=== PATIENT | male | born 1975 | race Caucasian/White ===

== ENCOUNTER → 2023-01-03 | Outpatient (CLI) | payer OTHER ==
[~2023-01-03] MED LIST: AMOX500 PO; CEPH500 PO; DIABETIC MED; HYDACE5 PO; METF500 PO; NAPR500 PO; SILSUL1TC TOP
== END | disposition home or self-care (01) ==
LOC: LAB SHORT 10:50 → PLD 10:50 → LAB 10:50
DX: H00.11 Chalazion right upper eyelid (principal)
CPT/HCPCS: 88304

== ENCOUNTER → 2025-01-01 | Outpatient (CLI) | payer OTHER | LOC: LAB 13:04 → LAB SHORT 13:04 | DX: L97.509 Non-pressure chronic ulcer of other part of unspecified foot with unspecified severity (principal) | CPT/HCPCS: 87070; 87075; 87205 ==

== ENCOUNTER 2025-02-18 18:30 | Emergency (ER) | payer OTHER ==
[~2025-02-18] VITALS: Ht 180.3 cm; Wt 94.3 kg
[2025-02-18] MEDS ORDERED: Acetaminophen 500 MG Tab PO ONE ×2 (18:50→23:00)
[2025-02-18] MEDS ORDERED: DiphenhydrAMINE HCl 50 MG/ML 1ML Vial IV ONE ×2 (18:50→23:00)
[2025-02-18] MEDS ORDERED: NS 1,000 ML IV SCH ×3 (18:50→23:00)
[2025-02-18] MEDS ORDERED: Prochlorperazine Edisylate 10 mg Vial IV ONE ×2 (18:50→23:00)
[2025-02-18] MEDS ORDERED: Ondansetron HCl 2 MG / ML 2ML Vial IV ONE (18:50)
[2025-02-18] MEDS ORDERED: Clindamycin 600mg in D5W 50 ML IV ONE ×2 (18:55→23:00)
[2025-02-18 19:12] LABS: BASOPHILS ABSOLUTE AUTO 0.06 K/mm3 (0.00-0.23); BASOPHILS PERCENT AUTO 0 % (0-2); EOSINOPHILS ABSOLUTE AUTO 0.01 K/mm3 (0.00-0.68); EOSINOPHILS PERCENT AUTO 0 % (0-6); Hematocrit 39.5 % (37.0-53.0); Hemoglobin 12.9 g/dL (13.5-17.5); IMMATURE GRAN ABSOLUTE AUTO 0.09 K/mm3 (0.00-0.10); IMMATURE GRAN PERCENT AUTO 1 % (0-1); LYMPHOCYTES ABSOLUTE AUTO 1.01 K/mm3 (0.84-5.20); LYMPHOCYTES PERCENT AUTO 5 % (21-46); MONOCYTES PERCENT AUTO 7 % (4-13); Mean Corpuscular HGB 30.5 pg (26.0-34.0); Mean Corpuscular HGB Conc 32.7 g/dL (31.5-36.5); Mean Corpuscular Volume 93 fL (80-100); Mean Platelet Volume 11.1 fL (9.1-12.4); NEUTROPHILS ABSOLUTE AUTO 16.57 K/mm3 (1.96-9.15); NEUTROPHILS PERCENT AUTO 87 % (41-73); Platelet Count 222 K/mm3 (150-400); RDW Coefficient Variation 12.5 % (11.7-14.2); RDW Standard Deviation 42.9 fL (35.1-46.3); Red Blood Cell Count 4.23 M/mm3 (4.30-5.90); White Blood Cell Count 19.14 K/mm3 (4.00-11.30)
[2025-02-18 19:29] LABS: Bun/Creatinine Ratio 13.2 (12.0-20.0); Calcium, Blood 9.1 mg/dL (8.5-10.1); Creatinine, Blood 1.14 mg/dL (0.60-1.20)
[2025-02-18] MEDS ORDERED: Piperacillin/Tazobactam Sod 4.5 GM in NS 100 ML IV ONE (20:35)
[2025-02-18] MEDS ORDERED: Vancomycin HCL 2,000 MG in NS 500 ML IV ONE (21:35)
[2025-02-18] MEDS ORDERED: Ketorolac Tromethamine 15mg Vial IV ONE (23:00)
[2025-02-19] MEDS ORDERED: NS 1,000 ML IV SCH (02:25)
[2025-02-19 03:35] VITALS: BP 92/64
== END 2025-02-19 03:53 | disposition short-term general hospital (02) ==
LOC: ER 18:30
PROVIDERS: Emergency Medicine
DX: A41.9 Sepsis, unspecified organism (principal); I10 Essential (primary) hypertension; E11.622 Type 2 diabetes mellitus with other skin ulcer; Z79.84 Long term (current) use of oral hypoglycemic drugs
CPT/HCPCS: 36415; 71046; 73630; 73701; 80048; 83605; 83735; 83880; 84484; 85025; 85651; 86140; 87040; 93005; 93010; 96361; 96374-59; 96375; 99285-25; A9270; J0780; J1200; J1885; J2543; J3370; J7030; J7040; Q9967

== ENCOUNTER → 2025-05-18 | Outpatient (CLI) | payer OTHER ==
[2025-05-18 20:24] LABS: Creatinine, Urine Random 122.0 mg/dL (27.00-270.00); Microalb/Creat Ratio UR, Rand 18.115 mg/g (0.000-30.000); Microalbumin, Random Urine 22.1 mg/L (0.000-20.000)
== END ==
LOC: LAB 15:57 → LAB SHORT 15:57
PROVIDERS: Internal Medicine Endocrinology, Diabetes & Metabolism
DX: E11.65 Type 2 diabetes mellitus with hyperglycemia (principal)
CPT/HCPCS: 82043; 82570

== ENCOUNTER → 2025-06-11 | Outpatient (CLI) | payer OTHER ==
[~2025-06-11] MED LIST changes: +ALOGLIPTIN25 M1 PO; +BUPROPION XL150 M1 PO; +DAPTOMYCIN500 M3 IV; +HUMALOG JU100 UNIT/2 SC; +OXYC10TA19 PO; +PREG75 PO; +STEGLATRO5 MG PO
== END ==
LOC: LAB SHORT 09:49 → LAB 09:49
DX: L97.823 Non-pressure chronic ulcer of other part of left lower leg with necrosis of muscle (principal)
CPT/HCPCS: 87070; 87077; 87147; 87186; 87205

== ENCOUNTER 2025-06-18 00:30 | Day surgery (SDC) | payer OTHER ==
[~2025-06-18] VITALS: Wt 99.0 kg
[~2025-06-18 00:30] MED LIST changes: -ALOGLIPTIN25 M1 PO; -BUPROPION XL150 M1 PO; -DAPTOMYCIN500 M3 IV; -HUMALOG JU100 UNIT/2 SC; -OXYC10TA19 PO; -PREG75 PO; -STEGLATRO5 MG PO
[2025-06-18] MEDS ORDERED: DAPTOmycin 600 MG in NS 50 ML IV SCH (06:00)
[2025-06-18 10:43] VITALS: BP 112/83
[2025-06-18] MEDS ORDERED: PREG75 PO (11:55)
[2025-06-18] MEDS ORDERED: HUMALOG JU100 UNIT/2 SC (11:55)
[2025-06-18] MEDS ORDERED: BUPROPION XL150 M1 PO (11:56)
[2025-06-18] MEDS ORDERED: STEGLATRO5 MG PO (11:56)
[2025-06-18] MEDS ORDERED: OXYC10TA19 PO (11:56)
[2025-06-18] MEDS ORDERED: ALOGLIPTIN25 M1 PO (11:57)
[2025-06-18] MEDS ORDERED: DAPTOMYCIN500 M3 IV (11:58)
== END 2025-06-18 11:01 | disposition home or self-care (01) ==
LOC: ATC 00:30
DX: A41.9 Sepsis, unspecified organism (principal); E11.621 Type 2 diabetes mellitus with foot ulcer; E11.65 Type 2 diabetes mellitus with hyperglycemia; Z79.4 Long term (current) use of insulin; Z79.899 Other long term (current) drug therapy; Z91.041 Radiographic dye allergy status
CPT/HCPCS: 96365; J0878

== ENCOUNTER 2025-06-19 02:07 | Day surgery (SDC) | payer OTHER ==
[~2025-06-19 02:07] MED LIST changes: +ALOGLIPTIN25 M1 PO; +BUPROPION XL150 M1 PO; +DAPTOMYCIN500 M3 IV; +HUMALOG JU100 UNIT/2 SC; +OXYC10TA19 PO; +PREG75 PO; +STEGLATRO5 MG PO
[2025-06-19] MEDS ORDERED: DAPTOmycin 600 MG in NS 50 ML IV SCH (07:25)
[2025-06-19 10:31] VITALS: BP 138/91
== END 2025-06-19 10:55 | disposition home or self-care (01) ==
LOC: ATC 02:07
DX: E11.69 Type 2 diabetes mellitus with other specified complication (principal); M86.672 Other chronic osteomyelitis, left ankle and foot; L08.9 Local infection of the skin and subcutaneous tissue, unspecified; E11.65 Type 2 diabetes mellitus with hyperglycemia; F32.A Depression, unspecified; Z79.899 Other long term (current) drug therapy; Z91.041 Radiographic dye allergy status
CPT/HCPCS: 96365; J0878

== ENCOUNTER 2025-06-20 01:55 | Day surgery (SDC) | payer OTHER ==
[2025-06-20] MEDS ORDERED: DAPTOmycin 600 MG in NS 50 ML IV SCH (06:00)
[2025-06-20 10:34] VITALS: BP 112/81
== END 2025-06-20 10:54 | disposition home or self-care (01) ==
LOC: ATC 01:55
DX: E11.628 Type 2 diabetes mellitus with other skin complications (principal); L08.9 Local infection of the skin and subcutaneous tissue, unspecified; E11.65 Type 2 diabetes mellitus with hyperglycemia; E11.69 Type 2 diabetes mellitus with other specified complication; M86.9 Osteomyelitis, unspecified; A41.9 Sepsis, unspecified organism; B95.62 Methicillin resistant Staphylococcus aureus infection as the cause of diseases classified elsewhere; N17.9 Acute kidney failure, unspecified; Z79.4 Long term (current) use of insulin; Z79.899 Other long term (current) drug therapy; Z91.041 Radiographic dye allergy status
CPT/HCPCS: 96365; J0878

== ENCOUNTER 2025-06-21 01:10 | Day surgery (SDC) | payer OTHER ==
[2025-06-21] MEDS ORDERED: DAPTOmycin 600 MG in NS 50 ML IV SCH (06:00)
[2025-06-21 14:38] VITALS: BP 107/81
== END 2025-06-21 15:05 | disposition home or self-care (01) ==
LOC: ATC 01:10
DX: A41.9 Sepsis, unspecified organism (principal); E11.65 Type 2 diabetes mellitus with hyperglycemia; E11.621 Type 2 diabetes mellitus with foot ulcer; Z79.899 Other long term (current) drug therapy; Z91.041 Radiographic dye allergy status
CPT/HCPCS: 96365; J0878

== ENCOUNTER 2025-06-22 08:03 | Day surgery (SDC) | payer OTHER ==
[2025-06-22] MEDS ORDERED: DAPTOmycin 600 MG in NS 50 ML IV SCH (08:30)
[2025-06-22 12:16] LABS: BASOPHILS ABSOLUTE AUTO 0.04 K/mm3 (0.00-0.23); BASOPHILS PERCENT AUTO 1 % (0-2); EOSINOPHILS ABSOLUTE AUTO 0.50 K/mm3 (0.00-0.68); EOSINOPHILS PERCENT AUTO 6 % (0-6); Hematocrit 36.9 % (37.0-53.0); Hemoglobin 11.8 g/dL (13.5-17.5); IMMATURE GRAN ABSOLUTE AUTO 0.09 K/mm3 (0.00-0.10); IMMATURE GRAN PERCENT AUTO 1 % (0-1); LYMPHOCYTES ABSOLUTE AUTO 1.96 K/mm3 (0.84-5.20); LYMPHOCYTES PERCENT AUTO 23 % (21-46); MONOCYTES ABSOLUTE AUTO 0.59 K/mm3 (0.16-1.47); MONOCYTES PERCENT AUTO 7 % (4-13); Mean Corpuscular HGB Conc 32.0 g/dL (31.5-36.5); Mean Corpuscular Volume 89 fL (80-100); NEUTROPHILS ABSOLUTE AUTO 5.47 K/mm3 (1.96-9.15); NEUTROPHILS PERCENT AUTO 63 % (41-73); NRBC ABSOLUTE 0.00 K/mm3 (0.00-0.02); NRBC Auto 0.0 /100 WBC (0.0-0.2); Platelet Count 354 K/mm3 (150-400); RDW Coefficient Variation 14.8 % (11.7-14.2); RDW Standard Deviation 47.7 fL (35.1-46.3)
[2025-06-22 12:47] LABS: Alanine Aminotransfer (ALT/SGP 35.0 U/L (12-78); Albumin, Blood 3.0 g/dL (3.4-5.0); Albumin/Globulin Ratio 0.7 (0.8-1.8); Anion Gap 6.0 mmol/L (3-11); Aspartate Aminotrans (AST/SGOT 23.0 U/L (12-37); Bilirubin, Total 0.2 mg/dL (0.1-1.0); Blood Urea Nitrogen 30.0 mg/dL (8-24); CO2, Blood 29.0 mmol/L (21-32); Calcium, Blood 9.0 mg/dL (8.5-10.1); Chloride, Blood 106.0 mmol/L (98-108); Creatinine, Blood 0.83 mg/dL (0.60-1.20); Globulin, Blood 4.6 g/dL (2.2-4.0); Glucose, Blood 171.0 mg/dL (70-99); Potassium, Blood 4.3 mmol/L (3.5-5.5); Sodium, Blood 137.0 mmol/L (136-145); Total Protein, Blood 7.6 g/dL (6.4-8.2)
== END 2025-06-22 11:35 | disposition home or self-care (01) ==
LOC: ATC 08:03
PROVIDERS: Family Medicine
DX: E11.69 Type 2 diabetes mellitus with other specified complication (principal); M86.9 Osteomyelitis, unspecified; A41.9 Sepsis, unspecified organism; R65.20 Severe sepsis without septic shock; E11.628 Type 2 diabetes mellitus with other skin complications; L08.9 Local infection of the skin and subcutaneous tissue, unspecified; E11.65 Type 2 diabetes mellitus with hyperglycemia; N17.9 Acute kidney failure, unspecified; B95.7 Other staphylococcus as the cause of diseases classified elsewhere; B96.89 Other specified bacterial agents as the cause of diseases classified elsewhere; Z91.041 Radiographic dye allergy status
CPT/HCPCS: 80053; 82550; 85025; 96365; J0878

== ENCOUNTER 2025-06-23 01:05 | Day surgery (SDC) | payer OTHER ==
[2025-06-23] MEDS ORDERED: DAPTOmycin 600 MG in NS 50 ML IV SCH (06:00)
[2025-06-23 10:29] VITALS: BP 114/86
== END 2025-06-23 10:53 | disposition home or self-care (01) ==
LOC: ATC 01:05
DX: E11.69 Type 2 diabetes mellitus with other specified complication (principal); M86.9 Osteomyelitis, unspecified; E11.628 Type 2 diabetes mellitus with other skin complications; L08.9 Local infection of the skin and subcutaneous tissue, unspecified; A41.9 Sepsis, unspecified organism; E11.65 Type 2 diabetes mellitus with hyperglycemia; Z91.041 Radiographic dye allergy status; Z79.899 Other long term (current) drug therapy
CPT/HCPCS: 96365; J0878

== ENCOUNTER 2025-06-24 00:40 | Day surgery (SDC) | payer OTHER ==
[2025-06-24] MEDS ORDERED: DAPTOmycin 600 MG in NS 50 ML IV SCH (06:00)
[2025-06-24 10:36] VITALS: BP 110/81
== END 2025-06-24 10:55 | disposition home or self-care (01) ==
LOC: ATC 00:40
DX: A41.9 Sepsis, unspecified organism (principal); E11.65 Type 2 diabetes mellitus with hyperglycemia; E11.621 Type 2 diabetes mellitus with foot ulcer; Z79.899 Other long term (current) drug therapy; Z91.041 Radiographic dye allergy status
CPT/HCPCS: 96365; J0878

== ENCOUNTER 2025-06-25 07:42 | Day surgery (SDC) | payer OTHER ==
[~2025-06-25 07:42] MED LIST changes: +DAPTOmycin 600 MG in NS 50 ML IV SCH
[2025-06-25 10:18] VITALS: BP 128/91
== END 2025-06-25 10:41 | disposition home or self-care (01) ==
LOC: ATC 07:42
DX: A41.9 Sepsis, unspecified organism (principal); R65.20 Severe sepsis without septic shock; N17.9 Acute kidney failure, unspecified; E11.69 Type 2 diabetes mellitus with other specified complication; M86.8X7 Other osteomyelitis, ankle and foot; B96.89 Other specified bacterial agents as the cause of diseases classified elsewhere; B96.4 Proteus (mirabilis) (morganii) as the cause of diseases classified elsewhere; B95.62 Methicillin resistant Staphylococcus aureus infection as the cause of diseases classified elsewhere; Z16.24 Resistance to multiple antibiotics; Z79.2 Long term (current) use of antibiotics; Z79.4 Long term (current) use of insulin; Z79.899 Other long term (current) drug therapy; Z91.041 Radiographic dye allergy status
CPT/HCPCS: 96365; J0878

== ENCOUNTER 2025-06-26 00:34 | Day surgery (SDC) | payer OTHER ==
[~2025-06-26] VITALS: Ht 180.3 cm; Wt 99.0 kg
[~2025-06-26 00:34] MED LIST changes: -DAPTOmycin 600 MG in NS 50 ML IV SCH
[2025-06-26] MEDS ORDERED: DAPTOmycin 600 MG in NS 50 ML IV SCH (06:00)
[2025-06-26 10:36] VITALS: BP 112/81
== END 2025-06-26 11:00 | disposition home or self-care (01) ==
LOC: ATC 00:34
DX: A41.9 Sepsis, unspecified organism (principal); R65.20 Severe sepsis without septic shock; N17.9 Acute kidney failure, unspecified; E11.69 Type 2 diabetes mellitus with other specified complication; M86.8X7 Other osteomyelitis, ankle and foot; B96.89 Other specified bacterial agents as the cause of diseases classified elsewhere; B96.4 Proteus (mirabilis) (morganii) as the cause of diseases classified elsewhere; B95.62 Methicillin resistant Staphylococcus aureus infection as the cause of diseases classified elsewhere; Z16.24 Resistance to multiple antibiotics; Z79.2 Long term (current) use of antibiotics; Z79.4 Long term (current) use of insulin; Z79.899 Other long term (current) drug therapy; Z91.041 Radiographic dye allergy status
CPT/HCPCS: 96365; J0878

== ENCOUNTER 2025-06-29 01:12 | Day surgery (SDC) | payer OTHER ==
[2025-06-29] MEDS ORDERED: DAPTOmycin 600 MG in NS 50 ML IV SCH (06:00)
[2025-06-29 10:33] VITALS: BP 120/85
[2025-06-29 11:04] LABS: BASOPHILS ABSOLUTE AUTO 0.06 K/mm3 (0.00-0.23); BASOPHILS PERCENT AUTO 1 % (0-2); EOSINOPHILS ABSOLUTE AUTO 0.33 K/mm3 (0.00-0.68); EOSINOPHILS PERCENT AUTO 5 % (0-6); Hematocrit 37.9 % (37.0-53.0); Hemoglobin 12.3 g/dL (13.5-17.5); IMMATURE GRAN ABSOLUTE AUTO 0.02 K/mm3 (0.00-0.10); IMMATURE GRAN PERCENT AUTO 0 % (0-1); LYMPHOCYTES ABSOLUTE AUTO 2.02 K/mm3 (0.84-5.20); LYMPHOCYTES PERCENT AUTO 31 % (21-46); MONOCYTES ABSOLUTE AUTO 0.49 K/mm3 (0.16-1.47); MONOCYTES PERCENT AUTO 7 % (4-13); Mean Corpuscular HGB Conc 32.5 g/dL (31.5-36.5); Mean Corpuscular Volume 88 fL (80-100); NEUTROPHILS ABSOLUTE AUTO 3.70 K/mm3 (1.96-9.15); NEUTROPHILS PERCENT AUTO 56 % (41-73); NRBC ABSOLUTE 0.00 K/mm3 (0.00-0.02); NRBC Auto 0.0 /100 WBC (0.0-0.2); Platelet Count 290 K/mm3 (150-400); RDW Coefficient Variation 15.1 % (11.7-14.2); RDW Standard Deviation 48.5 fL (35.1-46.3)
[2025-06-29 11:37] LABS: Alanine Aminotransfer (ALT/SGP 47.0 U/L (12-78); Albumin, Blood 3.5 g/dL (3.4-5.0); Albumin/Globulin Ratio 0.7 (0.8-1.8); Anion Gap 6.0 mmol/L (3-11); Aspartate Aminotrans (AST/SGOT 36.0 U/L (12-37); Bilirubin, Total 0.3 mg/dL (0.1-1.0); Blood Urea Nitrogen 30.0 mg/dL (8-24); CO2, Blood 27.0 mmol/L (21-32); Calcium, Blood 9.1 mg/dL (8.5-10.1); Chloride, Blood 109.0 mmol/L (98-108); Creatinine, Blood 0.87 mg/dL (0.60-1.20); Globulin, Blood 4.7 g/dL (2.2-4.0); Glucose, Blood 220.0 mg/dL (70-99); Potassium, Blood 4.2 mmol/L (3.5-5.5); Sodium, Blood 138.0 mmol/L (136-145); Total Protein, Blood 8.2 g/dL (6.4-8.2)
== END 2025-06-29 11:10 | disposition home or self-care (01) ==
LOC: ATC 01:12
PROVIDERS: Family Medicine
DX: E11.69 Type 2 diabetes mellitus with other specified complication (principal); M86.9 Osteomyelitis, unspecified; E11.628 Type 2 diabetes mellitus with other skin complications; L08.9 Local infection of the skin and subcutaneous tissue, unspecified; A41.9 Sepsis, unspecified organism; E11.65 Type 2 diabetes mellitus with hyperglycemia
CPT/HCPCS: 80053; 82550; 85025; J0878

== ENCOUNTER 2025-07-02 01:24 | Day surgery (SDC) | payer OTHER ==
[2025-07-02] MEDS ORDERED: DAPTOmycin 600 MG in NS 50 ML IV SCH (06:00)
[2025-07-02 10:43] VITALS: BP 108/82
== END 2025-07-02 11:04 | disposition home or self-care (01) ==
LOC: ATC 01:24
DX: E11.69 Type 2 diabetes mellitus with other specified complication (principal); M86.9 Osteomyelitis, unspecified; E11.628 Type 2 diabetes mellitus with other skin complications; L08.9 Local infection of the skin and subcutaneous tissue, unspecified; E11.65 Type 2 diabetes mellitus with hyperglycemia
CPT/HCPCS: 96365; J0878

== ENCOUNTER 2025-07-03 01:00 | Day surgery (SDC) | payer OTHER ==
[2025-07-03] MEDS ORDERED: DAPTOmycin 600 MG in NS 50 ML IV SCH (06:00)
[2025-07-03 10:39] VITALS: BP 110/88
== END 2025-07-03 10:59 | disposition home or self-care (01) ==
LOC: ATC 01:00
DX: E11.628 Type 2 diabetes mellitus with other skin complications (principal); L08.9 Local infection of the skin and subcutaneous tissue, unspecified; A41.02 Sepsis due to Methicillin resistant Staphylococcus aureus; R65.20 Severe sepsis without septic shock; N17.9 Acute kidney failure, unspecified; E11.65 Type 2 diabetes mellitus with hyperglycemia; E11.69 Type 2 diabetes mellitus with other specified complication; M86.9 Osteomyelitis, unspecified; Z79.4 Long term (current) use of insulin; Z79.84 Long term (current) use of oral hypoglycemic drugs; Z79.899 Other long term (current) drug therapy
CPT/HCPCS: 96365; J0878

== ENCOUNTER 2025-07-04 08:13 | Day surgery (SDC) | payer OTHER ==
[~2025-07-04 08:13] MED LIST changes: +DAPTOmycin 600 MG in NS 50 ML IV SCH
[2025-07-04 10:43] VITALS: BP 127/80
== END 2025-07-04 11:03 | disposition home or self-care (01) ==
LOC: ATC 08:13
DX: E11.628 Type 2 diabetes mellitus with other skin complications (principal); L08.9 Local infection of the skin and subcutaneous tissue, unspecified; E11.65 Type 2 diabetes mellitus with hyperglycemia; A41.02 Sepsis due to Methicillin resistant Staphylococcus aureus; R65.20 Severe sepsis without septic shock; N17.9 Acute kidney failure, unspecified; Z79.899 Other long term (current) drug therapy; Z79.4 Long term (current) use of insulin; Z91.041 Radiographic dye allergy status
CPT/HCPCS: 96365; J0878

== ENCOUNTER 2025-07-05 00:12 | Day surgery (SDC) | payer OTHER ==
[~2025-07-05 00:12] MED LIST changes: -DAPTOmycin 600 MG in NS 50 ML IV SCH
[2025-07-05] MEDS ORDERED: DAPTOmycin 600 MG in NS 50 ML IV SCH (06:00)
[2025-07-05 14:42] VITALS: BP 134/91
== END 2025-07-05 15:11 | disposition home or self-care (01) ==
LOC: ATC 00:12
DX: E11.628 Type 2 diabetes mellitus with other skin complications (principal); E11.65 Type 2 diabetes mellitus with hyperglycemia; F32.A Depression, unspecified; Z79.4 Long term (current) use of insulin; Z79.899 Other long term (current) drug therapy; Z91.041 Radiographic dye allergy status
CPT/HCPCS: 96365; J0878

== ENCOUNTER 2025-07-06 01:31 | Day surgery (SDC) | payer OTHER ==
[~2025-07-06] VITALS: Wt 97.7 kg
[2025-07-06] MEDS ORDERED: DAPTOmycin 600 MG in NS 50 ML IV SCH (06:00)
[2025-07-06 10:31] VITALS: BP 110/77
[2025-07-06 11:27] LABS: BASOPHILS ABSOLUTE AUTO 0.05 K/mm3 (0.00-0.23); BASOPHILS PERCENT AUTO 1 % (0-2); EOSINOPHILS ABSOLUTE AUTO 0.56 K/mm3 (0.00-0.68); EOSINOPHILS PERCENT AUTO 7 % (0-6); Hematocrit 39.4 % (37.0-53.0); Hemoglobin 12.8 g/dL (13.5-17.5); IMMATURE GRAN ABSOLUTE AUTO 0.03 K/mm3 (0.00-0.10); IMMATURE GRAN PERCENT AUTO 0 % (0-1); LYMPHOCYTES ABSOLUTE AUTO 2.21 K/mm3 (0.84-5.20); LYMPHOCYTES PERCENT AUTO 27 % (21-46); MONOCYTES ABSOLUTE AUTO 0.47 K/mm3 (0.16-1.47); MONOCYTES PERCENT AUTO 6 % (4-13); Mean Corpuscular HGB Conc 32.5 g/dL (31.5-36.5); Mean Corpuscular Volume 88 fL (80-100); NEUTROPHILS ABSOLUTE AUTO 4.84 K/mm3 (1.96-9.15); NEUTROPHILS PERCENT AUTO 59 % (41-73); NRBC ABSOLUTE 0.00 K/mm3 (0.00-0.02); NRBC Auto 0.0 /100 WBC (0.0-0.2); Platelet Count 274 K/mm3 (150-400); RDW Coefficient Variation 15.4 % (11.7-14.2); RDW Standard Deviation 49.1 fL (35.1-46.3)
[2025-07-06 11:59] LABS: Alanine Aminotransfer (ALT/SGP 56.0 U/L (12-78); Albumin, Blood 3.6 g/dL (3.4-5.0); Albumin/Globulin Ratio 0.8 (0.8-1.8); Anion Gap 7.0 mmol/L (3-11); Aspartate Aminotrans (AST/SGOT 30.0 U/L (12-37); Bilirubin, Total 0.4 mg/dL (0.1-1.0); Blood Urea Nitrogen 27.0 mg/dL (8-24); CO2, Blood 26.0 mmol/L (21-32); Calcium, Blood 9.3 mg/dL (8.5-10.1); Chloride, Blood 110.0 mmol/L (98-108); Creatinine, Blood 0.86 mg/dL (0.60-1.20); Globulin, Blood 4.5 g/dL (2.2-4.0); Glucose, Blood 197.0 mg/dL (70-99); Potassium, Blood 4.0 mmol/L (3.5-5.5); Sodium, Blood 139.0 mmol/L (136-145); Total Protein, Blood 8.1 g/dL (6.4-8.2)
== END 2025-07-06 10:52 | disposition home or self-care (01) ==
LOC: ATC 01:31
PROVIDERS: Student in an Organized Health Care Education/Training Program
DX: E11.69 Type 2 diabetes mellitus with other specified complication (principal); M86.9 Osteomyelitis, unspecified; L08.9 Local infection of the skin and subcutaneous tissue, unspecified; A41.9 Sepsis, unspecified organism; E11.65 Type 2 diabetes mellitus with hyperglycemia; Z91.041 Radiographic dye allergy status
CPT/HCPCS: 80053; 82550; 85025; 96365; J0878

== ENCOUNTER 2025-07-07 00:52 | Day surgery (SDC) | payer OTHER ==
[2025-07-07] MEDS ORDERED: DAPTOmycin 600 MG in NS 50 ML IV SCH (06:00)
[2025-07-07 10:37] VITALS: BP 113/83
== END 2025-07-07 10:59 | disposition home or self-care (01) ==
LOC: ATC 00:52
DX: E11.628 Type 2 diabetes mellitus with other skin complications (principal); L08.9 Local infection of the skin and subcutaneous tissue, unspecified; E11.65 Type 2 diabetes mellitus with hyperglycemia; F32.A Depression, unspecified; Z79.4 Long term (current) use of insulin; Z79.899 Other long term (current) drug therapy; Z91.041 Radiographic dye allergy status
CPT/HCPCS: 96365; J0878

== ENCOUNTER 2025-07-08 03:15 | Day surgery (SDC) | payer OTHER ==
[2025-07-08] MEDS ORDERED: DAPTOmycin 600 MG in NS 50 ML IV SCH (06:00)
[2025-07-08 11:50] VITALS: BP 127/92
== END 2025-07-08 12:12 | disposition home or self-care (01) ==
LOC: ATC 03:15
DX: A41.9 Sepsis, unspecified organism (principal); R65.20 Severe sepsis without septic shock; N17.9 Acute kidney failure, unspecified; E11.628 Type 2 diabetes mellitus with other skin complications; L08.9 Local infection of the skin and subcutaneous tissue, unspecified; B95.62 Methicillin resistant Staphylococcus aureus infection as the cause of diseases classified elsewhere; B96.89 Other specified bacterial agents as the cause of diseases classified elsewhere; Z79.4 Long term (current) use of insulin; Z79.84 Long term (current) use of oral hypoglycemic drugs; Z79.899 Other long term (current) drug therapy; Z91.041 Radiographic dye allergy status
CPT/HCPCS: 96365; J0878

== ENCOUNTER 2025-07-09 08:12 | Day surgery (SDC) | payer OTHER ==
[~2025-07-09 08:12] MED LIST changes: +DAPTOmycin 600 MG in NS 50 ML IV SCH
[2025-07-09 10:37] VITALS: BP 120/73
== END 2025-07-09 10:57 | disposition home or self-care (01) ==
LOC: ATC 08:12
DX: E11.628 Type 2 diabetes mellitus with other skin complications (principal); L08.9 Local infection of the skin and subcutaneous tissue, unspecified; E11.65 Type 2 diabetes mellitus with hyperglycemia; E11.69 Type 2 diabetes mellitus with other specified complication; M86.672 Other chronic osteomyelitis, left ankle and foot; Z91.041 Radiographic dye allergy status; Z79.4 Long term (current) use of insulin
CPT/HCPCS: 96365; J0878

== ENCOUNTER 2025-07-10 01:42 | Day surgery (SDC) | payer OTHER ==
[~2025-07-10 01:42] MED LIST changes: -DAPTOmycin 600 MG in NS 50 ML IV SCH
[2025-07-10] MEDS ORDERED: DAPTOmycin 600 MG in NS 50 ML IV SCH (06:00)
[2025-07-10 10:30] VITALS: BP 127/86
== END 2025-07-10 10:47 | disposition home or self-care (01) ==
LOC: ATC 01:42
DX: E11.628 Type 2 diabetes mellitus with other skin complications (principal); L08.9 Local infection of the skin and subcutaneous tissue, unspecified; R65.20 Severe sepsis without septic shock; N17.9 Acute kidney failure, unspecified; E11.65 Type 2 diabetes mellitus with hyperglycemia; E11.69 Type 2 diabetes mellitus with other specified complication; M86.9 Osteomyelitis, unspecified; Z79.4 Long term (current) use of insulin; Z79.84 Long term (current) use of oral hypoglycemic drugs; Z79.899 Other long term (current) drug therapy; Z91.041 Radiographic dye allergy status
CPT/HCPCS: 96365; J0878

== ENCOUNTER 2025-07-11 00:32 | Day surgery (SDC) | payer OTHER ==
[2025-07-11] MEDS ORDERED: DAPTOmycin 600 MG in NS 50 ML IV SCH (06:00)
[2025-07-11 10:31] VITALS: BP 140/90
== END 2025-07-11 10:50 | disposition home or self-care (01) ==
LOC: ATC 00:32
DX: A41.9 Sepsis, unspecified organism (principal); E11.628 Type 2 diabetes mellitus with other skin complications; L08.9 Local infection of the skin and subcutaneous tissue, unspecified; N17.9 Acute kidney failure, unspecified; B95.62 Methicillin resistant Staphylococcus aureus infection as the cause of diseases classified elsewhere; B96.89 Other specified bacterial agents as the cause of diseases classified elsewhere; Z79.4 Long term (current) use of insulin; Z79.84 Long term (current) use of oral hypoglycemic drugs; Z79.899 Other long term (current) drug therapy; Z91.041 Radiographic dye allergy status
CPT/HCPCS: 96365; J0878

== ENCOUNTER 2025-07-12 03:51 | Day surgery (SDC) | payer OTHER ==
[2025-07-12] MEDS ORDERED: DAPTOmycin 600 MG in NS 50 ML IV SCH (06:00)
[2025-07-12 10:44] VITALS: BP 122/93
== END 2025-07-12 11:04 | disposition home or self-care (01) ==
LOC: ATC 03:51
DX: A41.9 Sepsis, unspecified organism (principal); E11.628 Type 2 diabetes mellitus with other skin complications; L08.9 Local infection of the skin and subcutaneous tissue, unspecified; N17.9 Acute kidney failure, unspecified; B95.62 Methicillin resistant Staphylococcus aureus infection as the cause of diseases classified elsewhere; B96.89 Other specified bacterial agents as the cause of diseases classified elsewhere; Z79.4 Long term (current) use of insulin; Z79.84 Long term (current) use of oral hypoglycemic drugs; Z79.899 Other long term (current) drug therapy; Z91.041 Radiographic dye allergy status
CPT/HCPCS: 96365; J0878

== ENCOUNTER 2025-07-13 00:44 | Day surgery (SDC) | payer OTHER ==
[~2025-07-13] VITALS: Wt 98.3 kg
[2025-07-13] MEDS ORDERED: DAPTOmycin 600 MG in NS 50 ML IV SCH (06:00)
[2025-07-13 10:37] VITALS: BP 120/83
[2025-07-13 11:00] LABS: BASOPHILS ABSOLUTE AUTO 0.04 K/mm3 (0.00-0.23); BASOPHILS PERCENT AUTO 1 % (0-2); EOSINOPHILS ABSOLUTE AUTO 0.44 K/mm3 (0.00-0.68); EOSINOPHILS PERCENT AUTO 7 % (0-6); Hematocrit 37.9 % (37.0-53.0); Hemoglobin 12.1 g/dL (13.5-17.5); IMMATURE GRAN ABSOLUTE AUTO 0.02 K/mm3 (0.00-0.10); IMMATURE GRAN PERCENT AUTO 0 % (0-1); LYMPHOCYTES ABSOLUTE AUTO 2.20 K/mm3 (0.84-5.20); LYMPHOCYTES PERCENT AUTO 33 % (21-46); MONOCYTES ABSOLUTE AUTO 0.36 K/mm3 (0.16-1.47); MONOCYTES PERCENT AUTO 5 % (4-13); Mean Corpuscular HGB Conc 31.9 g/dL (31.5-36.5); Mean Corpuscular Volume 90 fL (80-100); NEUTROPHILS ABSOLUTE AUTO 3.58 K/mm3 (1.96-9.15); NEUTROPHILS PERCENT AUTO 54 % (41-73); NRBC ABSOLUTE 0.00 K/mm3 (0.00-0.02); NRBC Auto 0.0 /100 WBC (0.0-0.2); Platelet Count 196 K/mm3 (150-400); RDW Coefficient Variation 15.3 % (11.7-14.2); RDW Standard Deviation 50.0 fL (35.1-46.3)
[2025-07-13 11:20] LABS: Alanine Aminotransfer (ALT/SGP 68.0 U/L (12-78); Albumin, Blood 3.3 g/dL (3.4-5.0); Albumin/Globulin Ratio 0.8 (0.8-1.8); Anion Gap 8.0 mmol/L (3-11); Aspartate Aminotrans (AST/SGOT 35.0 U/L (12-37); Bilirubin, Total 0.3 mg/dL (0.1-1.0); Blood Urea Nitrogen 15.0 mg/dL (8-24); CO2, Blood 26.0 mmol/L (21-32); Calcium, Blood 8.7 mg/dL (8.5-10.1); Chloride, Blood 108.0 mmol/L (98-108); Creatinine, Blood 0.84 mg/dL (0.60-1.20); Globulin, Blood 4.0 g/dL (2.2-4.0); Glucose, Blood 210.0 mg/dL (70-99); Potassium, Blood 3.9 mmol/L (3.5-5.5); Sodium, Blood 138.0 mmol/L (136-145); Total Protein, Blood 7.3 g/dL (6.4-8.2)
== END 2025-07-13 10:56 | disposition home or self-care (01) ==
LOC: ATC 00:44
PROVIDERS: Student in an Organized Health Care Education/Training Program
DX: E11.69 Type 2 diabetes mellitus with other specified complication (principal); M86.9 Osteomyelitis, unspecified; L08.9 Local infection of the skin and subcutaneous tissue, unspecified; A41.9 Sepsis, unspecified organism; E11.65 Type 2 diabetes mellitus with hyperglycemia
CPT/HCPCS: 80053; 85025; 96365; J0878

== ENCOUNTER 2025-07-14 02:27 | Day surgery (SDC) | payer OTHER ==
[2025-07-14] MEDS ORDERED: DAPTOmycin 600 MG in NS 50 ML IV SCH (06:00)
[2025-07-14 10:27] VITALS: BP 124/83
== END 2025-07-14 10:51 | disposition home or self-care (01) ==
LOC: ATC 02:27
DX: E11.69 Type 2 diabetes mellitus with other specified complication (principal); M86.9 Osteomyelitis, unspecified; L08.9 Local infection of the skin and subcutaneous tissue, unspecified; A41.9 Sepsis, unspecified organism; E11.65 Type 2 diabetes mellitus with hyperglycemia; Z91.041 Radiographic dye allergy status
CPT/HCPCS: 96365; J0878

== ENCOUNTER 2025-07-15 13:32 | Day surgery (SDC) | payer OTHER ==
[2025-07-15 10:35] VITALS: BP 129/83
[~2025-07-15 13:32] MED LIST changes: +DAPTOmycin 600 MG in NS 50 ML IV SCH
== END 2025-07-15 23:00 | disposition home or self-care (01) ==
LOC: ATC 13:32
DX: A41.9 Sepsis, unspecified organism (principal); E11.628 Type 2 diabetes mellitus with other skin complications; L08.9 Local infection of the skin and subcutaneous tissue, unspecified; N17.9 Acute kidney failure, unspecified; B96.89 Other specified bacterial agents as the cause of diseases classified elsewhere; B96.4 Proteus (mirabilis) (morganii) as the cause of diseases classified elsewhere; B95.62 Methicillin resistant Staphylococcus aureus infection as the cause of diseases classified elsewhere; Z79.4 Long term (current) use of insulin; Z79.84 Long term (current) use of oral hypoglycemic drugs; Z79.899 Other long term (current) drug therapy; Z91.041 Radiographic dye allergy status
CPT/HCPCS: 96365; J0878

== ENCOUNTER 2025-07-16 00:48 | Day surgery (SDC) | payer OTHER ==
[~2025-07-16 00:48] MED LIST changes: -DAPTOmycin 600 MG in NS 50 ML IV SCH
[2025-07-16] MEDS ORDERED: DAPTOmycin 600 MG in NS 50 ML IV SCH (06:00)
[2025-07-16 10:45] VITALS: BP 160/98
[2025-07-16 11:02] VITALS: BP 146/97
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
== END 2025-07-16 11:03 | disposition home or self-care (01) ==
LOC: ATC 00:48
DX: E11.628 Type 2 diabetes mellitus with other skin complications (principal); L08.9 Local infection of the skin and subcutaneous tissue, unspecified; E11.65 Type 2 diabetes mellitus with hyperglycemia; E11.69 Type 2 diabetes mellitus with other specified complication; M86.672 Other chronic osteomyelitis, left ankle and foot; Z91.041 Radiographic dye allergy status; Z79.4 Long term (current) use of insulin; Z79.899 Other long term (current) drug therapy
CPT/HCPCS: 96365; J0878

== ENCOUNTER 2025-07-17 02:21 | Day surgery (SDC) | payer OTHER ==
[2025-07-17] MEDS ORDERED: DAPTOmycin 600 MG in NS 50 ML IV SCH (06:00)
[2025-07-17 10:29] VITALS: BP 125/77
== END 2025-07-17 10:59 | disposition home or self-care (01) ==
LOC: ATC 02:21
DX: E11.628 Type 2 diabetes mellitus with other skin complications (principal); L08.9 Local infection of the skin and subcutaneous tissue, unspecified; E11.69 Type 2 diabetes mellitus with other specified complication; M86.672 Other chronic osteomyelitis, left ankle and foot; E11.65 Type 2 diabetes mellitus with hyperglycemia; Z79.4 Long term (current) use of insulin; Z79.899 Other long term (current) drug therapy; Z91.041 Radiographic dye allergy status
CPT/HCPCS: 96365; J0878

== ENCOUNTER 2025-07-18 01:54 | Day surgery (SDC) | payer OTHER ==
[2025-07-18] MEDS ORDERED: DAPTOmycin 600 MG in NS 50 ML IV SCH (06:00)
[2025-07-18 10:30] VITALS: BP 122/83
== END 2025-07-18 10:50 | disposition home or self-care (01) ==
LOC: ATC 01:54
DX: E11.628 Type 2 diabetes mellitus with other skin complications (principal); E11.65 Type 2 diabetes mellitus with hyperglycemia; E11.69 Type 2 diabetes mellitus with other specified complication; M86.9 Osteomyelitis, unspecified; L08.9 Local infection of the skin and subcutaneous tissue, unspecified; A41.9 Sepsis, unspecified organism; B95.62 Methicillin resistant Staphylococcus aureus infection as the cause of diseases classified elsewhere; N17.9 Acute kidney failure, unspecified; Z79.4 Long term (current) use of insulin; Z79.899 Other long term (current) drug therapy; Z91.041 Radiographic dye allergy status
CPT/HCPCS: 96365; J0878

== ENCOUNTER 2025-07-19 02:05 | Day surgery (SDC) | payer OTHER ==
[2025-07-19] MEDS ORDERED: DAPTOmycin 600 MG in NS 50 ML IV SCH (06:00)
[2025-07-19 14:43] VITALS: BP 113/75
== END 2025-07-19 15:17 | disposition home or self-care (01) ==
LOC: ATC 02:05
DX: E11.628 Type 2 diabetes mellitus with other skin complications (principal); L08.9 Local infection of the skin and subcutaneous tissue, unspecified; E11.65 Type 2 diabetes mellitus with hyperglycemia; E11.69 Type 2 diabetes mellitus with other specified complication; M86.672 Other chronic osteomyelitis, left ankle and foot; Z79.4 Long term (current) use of insulin; Z79.899 Other long term (current) drug therapy; Z91.041 Radiographic dye allergy status
CPT/HCPCS: 96365; J0878

== ENCOUNTER 2025-07-20 01:47 | Day surgery (SDC) | payer OTHER ==
[~2025-07-20] VITALS: Wt 98.3 kg
[2025-07-20] MEDS ORDERED: DAPTOmycin 600 MG in NS 50 ML IV SCH (06:00)
[2025-07-20 10:28] VITALS: BP 115/78
[2025-07-20 11:03] LABS: BASOPHILS ABSOLUTE AUTO 0.04 K/mm3 (0.00-0.23); BASOPHILS PERCENT AUTO 1 % (0-2); EOSINOPHILS ABSOLUTE AUTO 0.19 K/mm3 (0.00-0.68); EOSINOPHILS PERCENT AUTO 3 % (0-6); Hematocrit 36.6 % (37.0-53.0); Hemoglobin 11.6 g/dL (13.5-17.5); IMMATURE GRAN ABSOLUTE AUTO 0.02 K/mm3 (0.00-0.10); IMMATURE GRAN PERCENT AUTO 0 % (0-1); LYMPHOCYTES ABSOLUTE AUTO 2.15 K/mm3 (0.84-5.20); LYMPHOCYTES PERCENT AUTO 31 % (21-46); MONOCYTES ABSOLUTE AUTO 0.38 K/mm3 (0.16-1.47); MONOCYTES PERCENT AUTO 5 % (4-13); Mean Corpuscular HGB Conc 31.7 g/dL (31.5-36.5); Mean Corpuscular Volume 90 fL (80-100); NEUTROPHILS ABSOLUTE AUTO 4.26 K/mm3 (1.96-9.15); NEUTROPHILS PERCENT AUTO 61 % (41-73); NRBC ABSOLUTE 0.00 K/mm3 (0.00-0.02); NRBC Auto 0.0 /100 WBC (0.0-0.2); Platelet Count 216 K/mm3 (150-400); RDW Coefficient Variation 15.4 % (11.7-14.2); RDW Standard Deviation 50.5 fL (35.1-46.3)
[2025-07-20 11:45] LABS: Alanine Aminotransfer (ALT/SGP 58.0 U/L (12-78); Albumin, Blood 3.3 g/dL (3.4-5.0); Albumin/Globulin Ratio 0.8 (0.8-1.8); Anion Gap 8.0 mmol/L (3-11); Aspartate Aminotrans (AST/SGOT 31.0 U/L (12-37); Bilirubin, Total 0.4 mg/dL (0.1-1.0); Blood Urea Nitrogen 18.0 mg/dL (8-24); CO2, Blood 29.0 mmol/L (21-32); Calcium, Blood 8.6 mg/dL (8.5-10.1); Chloride, Blood 107.0 mmol/L (98-108); Creatinine, Blood 0.87 mg/dL (0.60-1.20); Globulin, Blood 4.0 g/dL (2.2-4.0); Glucose, Blood 190.0 mg/dL (70-99); Potassium, Blood 4.0 mmol/L (3.5-5.5); Sodium, Blood 140.0 mmol/L (136-145); Total Protein, Blood 7.3 g/dL (6.4-8.2)
== END 2025-07-20 11:19 | disposition home or self-care (01) ==
LOC: ATC 01:47
PROVIDERS: Student in an Organized Health Care Education/Training Program
DX: E11.69 Type 2 diabetes mellitus with other specified complication (principal); M86.9 Osteomyelitis, unspecified; E11.628 Type 2 diabetes mellitus with other skin complications; L08.9 Local infection of the skin and subcutaneous tissue, unspecified; A41.9 Sepsis, unspecified organism; E11.65 Type 2 diabetes mellitus with hyperglycemia
CPT/HCPCS: 80053; 82550; 85025; 96365; J0878

== ENCOUNTER 2025-07-21 00:21 | Day surgery (SDC) | payer OTHER ==
[2025-07-21] MEDS ORDERED: DAPTOmycin 600 MG in NS 50 ML IV SCH (06:00)
[2025-07-21 10:25] VITALS: BP 111/80
== END 2025-07-21 10:54 | disposition home or self-care (01) ==
LOC: ATC 00:21
DX: E11.628 Type 2 diabetes mellitus with other skin complications (principal); L08.9 Local infection of the skin and subcutaneous tissue, unspecified; E11.65 Type 2 diabetes mellitus with hyperglycemia; Z91.041 Radiographic dye allergy status; Z79.4 Long term (current) use of insulin; Z79.899 Other long term (current) drug therapy
CPT/HCPCS: 96365; J0878

== ENCOUNTER 2025-07-22 02:52 | Day surgery (SDC) | payer OTHER ==
[2025-07-22] MEDS ORDERED: DAPTOmycin 600 MG in NS 50 ML IV SCH (06:00)
[2025-07-22 10:37] VITALS: BP 116/90
== END 2025-07-22 10:56 | disposition home or self-care (01) ==
LOC: ATC 02:52
DX: E11.69 Type 2 diabetes mellitus with other specified complication (principal); M86.9 Osteomyelitis, unspecified; L08.9 Local infection of the skin and subcutaneous tissue, unspecified; A41.9 Sepsis, unspecified organism; E11.65 Type 2 diabetes mellitus with hyperglycemia
CPT/HCPCS: 96365; J0878

== ENCOUNTER 2025-07-23 01:15 | Day surgery (SDC) | payer OTHER ==
[2025-07-23] MEDS ORDERED: DAPTOmycin 600 MG in NS 50 ML IV SCH (06:00)
[2025-07-23 10:28] VITALS: BP 114/96
== END 2025-07-23 10:50 | disposition home or self-care (01) ==
LOC: ATC 01:15
DX: E11.69 Type 2 diabetes mellitus with other specified complication (principal); M86.9 Osteomyelitis, unspecified; E11.628 Type 2 diabetes mellitus with other skin complications; L08.9 Local infection of the skin and subcutaneous tissue, unspecified; A41.9 Sepsis, unspecified organism; E11.65 Type 2 diabetes mellitus with hyperglycemia; Z91.041 Radiographic dye allergy status
CPT/HCPCS: 96365; 99211; J0878

== ENCOUNTER 2025-07-24 00:10 | Day surgery (SDC) | payer OTHER ==
[2025-07-24] MEDS ORDERED: DAPTOmycin 600 MG in NS 50 ML IV SCH (10:35)
[2025-07-24 10:38] VITALS: BP 122/91
== END 2025-07-24 10:56 | disposition home or self-care (01) ==
LOC: ATC 00:10
DX: E11.69 Type 2 diabetes mellitus with other specified complication (principal); E11.628 Type 2 diabetes mellitus with other skin complications; L08.9 Local infection of the skin and subcutaneous tissue, unspecified; A41.9 Sepsis, unspecified organism; E11.65 Type 2 diabetes mellitus with hyperglycemia; Z91.041 Radiographic dye allergy status
CPT/HCPCS: 96365; J0878

== ENCOUNTER 2025-07-25 01:30 | Day surgery (SDC) | payer OTHER ==
[2025-07-25] MEDS ORDERED: DAPTOmycin 600 MG in NS 50 ML IV SCH (06:00)
[2025-07-25 10:30] VITALS: BP 116/83
== END 2025-07-25 10:54 | disposition home or self-care (01) ==
LOC: ATC 01:30
DX: E11.69 Type 2 diabetes mellitus with other specified complication (principal); M86.9 Osteomyelitis, unspecified; E11.628 Type 2 diabetes mellitus with other skin complications; L08.9 Local infection of the skin and subcutaneous tissue, unspecified; A41.9 Sepsis, unspecified organism; E11.65 Type 2 diabetes mellitus with hyperglycemia; Z91.041 Radiographic dye allergy status
CPT/HCPCS: 96365; J0878

== ENCOUNTER 2025-07-26 01:04 | Day surgery (SDC) | payer OTHER ==
[~2025-07-26 01:04] MED LIST changes: +DAPTOmycin 600 MG in NS 50 ML IV SCH
[2025-07-26] MEDS ORDERED: DAPTOmycin 600 MG in NS 50 ML IV SCH (06:00)
[2025-07-26 14:11] VITALS: BP 112/71
== END 2025-07-26 14:45 | disposition home or self-care (01) ==
LOC: ATC 01:04
DX: E11.628 Type 2 diabetes mellitus with other skin complications (principal); L08.9 Local infection of the skin and subcutaneous tissue, unspecified; B95.62 Methicillin resistant Staphylococcus aureus infection as the cause of diseases classified elsewhere; R65.20 Severe sepsis without septic shock; N17.9 Acute kidney failure, unspecified; Z79.4 Long term (current) use of insulin; E11.65 Type 2 diabetes mellitus with hyperglycemia; Z79.899 Other long term (current) drug therapy
CPT/HCPCS: 96365; J0878